=== PATIENT | male | born 1945 | race African-American/Black ===

== ENCOUNTER → 2022-10-11 14:23 | Outpatient (BNVA) | payer MEDICARE, OTHER, SELFPAY | PROVIDERS: PCP Internal Medicine; Visit Provider Internal Medicine | DX: E66.01 Morbid (severe) obesity due to excess calories (principal); Z68.42 Body mass index [BMI] 45.0-49.9, adult; G47.33 Obstructive sleep apnea (adult) (pediatric); R06.09 Other forms of dyspnea; J98.4 Other disorders of lung; Z99.89 Dependence on other enabling machines and devices | CPT/HCPCS: 99202 ==

== ENCOUNTER 2022-12-18 13:59 | Outpatient (AMB) | payer MEDICARE, OTHER, SELFPAY ==
--- NOTE | 2022-12-18 14:03 | A.OFFVIS_ITS ---
Intake Vital Signs 12/18/22 14:04 Height 5 ft 11 in Weight 328 lb 7.82 oz BMI 45.8 BP 132/76 Blood Pressure Location Rt brachial Position Sitting Pulse 86 Pulse Source Pulse Oximeter Pulse Oximetry (%) 92 Oxygen Delivery Method Room Air Intake Visit Reasons: Same day PFT Intake Note: Pt reports shortness of breath on exertion that has continuously gotten worse. Technical Specialist Required: No Allergies No Known Allergies Allergy (Verified 12/18/22 15:04) Medication List - Last Reconciled 12/18/22 by Tam Grewal MD albuterol sulfate 90 mcg/actuation 2 puffs inhalation Q4-6H PRN allopurinol 300 mg PO DAILY atorvastatin 40 mg PO BEDTIME buspirone 20 mg PO TID PRN cholecalciferol (vitamin D3) 50 mcg PO DAILY dicyclomine 20 mg PO BID escitalopram oxalate 10 mg PO DAILY finasteride 5 mg PO DAILY hydrocortisone valerate 0.2% 1 appl topical BID PRN metoprolol tartrate 12.5 mg PO BID tamsulosin 0.4 mg PO DAILY torsemide 20 mg PO DAILY trazodone 100 mg PO BEDTIME PRN warfarin 3 mg PO DAILY warfarin 5 mg PO DAILY Do you need a note to return to daycare/school/sports/work: No HPI Same day PFT HPI Details This 76 years old gentleman who is morbidly obese, has obstructive sleep apnea using CPAP at night regularly, Has past history of CABG. Is here for follow-up for shortness of breath on minimal exertion, Does not have any distinct wheezing, also does not. Have cough or expectoration He just gets short of breath when he walks even 1 block, and when he walks he walks slow. He has been doing deep breathing exercises. He is not able to lose any weight because he is not able to do much exercise. [facility] Medical History (Updated 12/18/22 @ 16:40 by Tam Grewal MD) Dyspnea on minimal exertion Exercise hypoxemia Morbid obesity ZAIN on CPAP Restrictive lung disease secondary to obesity Social History Patient Tobacco Use Status: Former Tobacco user Review of Systems Const All systems reviewed & are unremarkable except as noted in HPI and below Eyes Reports no additional complaints ENT Reports no additional complaints Card Denies chest pain, Denies irregular heart rhythm and Reports leg edema Resp Reports as per HPI GI Reports GI cramping (OFF AND ON) Reports nocturia Musc Reports back pain Skin/Breast Reports dry skin (OF THE LEGS) Neuro Reports no additional complaints Psych Reports no additional complaints Endo Reports no additional complaints Physical Exam Vital Signs: Last Vital Signs Pulse 86 12/18/22 14:04 BP 132/76 12/18/22 14:04 Pulse Ox 92 12/18/22 14:04 Oxygen Delivery Method Room Air 12/18/22 14:04 BMI result Body Mass Index 45.8 Const General: comfortable, no acute distress, alert and awake Orientation/consciousness: patient oriented x3 HEENT Head: Yes normal to inspection General nose exam: No nasal polyps present and No nasal discharge present Face and sinus: Yes sinuses nontender Mouth: oropharynx abnormals (NARROW AND CROWDED, MALLAMPATI SCALE 4) Throat: Yes posterior oropharynx normal Eyes General: appearance normal, both eyes and all related structures Neck Neck: Yes normal visual inspection, Yes no lymphadenopathy, Yes trachea midline, Yes no JVD and Yes other (NECK CIRCUMFERENCE 19 IN) Thyroid: Thyroid normal Chest Chest palpation & inspection: abnormal inspection of the chest (MIDLINE SCAR FROM PREVIOUS CABG SURGERY), normal palpation of entire chest wall and no tenderness Resp Other: PERCUSSION NOTE IS RESONANT. BREATH SOUNDS ARE DIMINISHED OVER BOTH BASILAR AREAS. NO WHEEZES RHONCHI OR CREPITATIONS ARE HEARD. Cardio Palpation: normal PMI Rate: regular rate Rhythm: regular rhythm Heart sounds: no gallops and no murmurs GI Palpation (GI): Soft to palpation, nontender, No hepatosplenomegaly present, no masses and Other GI palpation findings present (ABDOMEN IS OBESE AND PROTUBERANT) Auscultation: normal bowel sounds Back/Spine/Pelvis Thoracic/Lumbar Spine: thoracic and lumbar spine normal to inspection, thoraco- lumbar ROM limited and thoracic spinal tenderness Skin General skin exam: no rashes or lesions noted and dry skin (CHRONIC SCALING AND DRY SKIN OF LEGS) Neuro General: patient oriented x3 and no focal motor deficits Cranial nerves: Yes CN's II-XII intact bilaterally Extrem General: Yes normal to inspection, Yes no clubbing, cyanosis or edema, Yes no calf tenderness and Yes venous stasis dermatitis (MILD) Psych Appearance: grossly normal and well kempt Speech and movement: Normal speech and movement present Office Procedures 6 Minute Walk Time:: 15:55 SPO2 % at rest: 95 Pulse at rest: 76 SPO2 % during excercise: 87 Pulse during excercise: 100 SPO2 % after excercise: 93 Pulse after excercise: 85 Distance in yards walked: 75 Renetta Score: 9 Performance Observations:: Patient walked unassisted for 75 yards on level ground. Maintained O2 saturation of 90%with pulse rate of 100. During the last 10 yards patient was SOB with O2 saturation down to 87%. Supplemental O2 was applied at 1liter via nasal cannula with return to 93% after about 1 minute. Patient reports he tires easily and gets SOB with walking any distance. [address]6580 - 6 Minute Walk Results Reviewed Results Reviewed: PULMONARY FUNCTION TEST, DONE TODAY SHOWS THAT HE DOES NOT HAVE ANY SIGNIFICANT OBSTRUCTIVE DISORDER. HE DOES HAVE MILD RESTRICTIVE PATTERN WITH TOTAL LUNG CAPACITY 79%. FVC 71% AND FEV1 70% MVV IS 49%. NO RESPONSE TO BDs . ALSO DIFFUSION CAPACITY IS 56% DL/VA =77 % Assessment & Plan Assessment & Plan (1) Restrictive lung disease secondary to obesity: Comment: HE DOES HAVE BUT ONLY MILD RESTRICTIVE PATTERN. THIS IS SECONDARY TO HIS GROSS OBESITY. ADVISED TO LOSE WEIGHT ADVISED TO CONTINUE DOING DEEP BREATHING EXERCISES 3 TO 4 TIMES A DAY. Code(s): J98.4 - Other disorders of lung; E66.9 - Obesity, unspecified (2) Dyspnea on minimal exertion: Comment: DYSPNEA ON MINIMAL EXERTION SEEMS TO BE DUE TO MULTIPLE FACTORS INCLUDING, GROSS OBESITY, MILD RESTRICTIVE PATTERN. AND MOST IMPORTANTLY EXERTIONAL HYPOXEMIA. HE IS BEING STARTED ON O2 WITH PORTABLE UNIT, AND ADVISED TO USE 2 L/MINUTE ANY TIME HE WALKS AROUND OR DOES ANY PHYSICAL EXERTION. Code(s): R06.09 - Other forms of dyspnea (3) ZAIN on CPAP: Comment: HE IS IN KNOWN CASE OF OBSTRUCTIVE SLEEP APNEA SINCE ABOUT 10 YEARS AGO, USES CPAP VERY REGULARLY EVERY NIGHT. HE SHOULD HAVE OVERNIGHT OXIMETRY RECORDING WITH USE OF CPAP, TO DETERMINE IF HE SHOULD USE OXYGEN ALONG WITH CPAP AT NIGHT . HE IS BEING FOLLOWED UP AT [facility]. Code(s): G47.33 - Obstructive sleep apnea (adult) (pediatric); Z99.89 - Dependence on other enabling machines and devices (4) Morbid obesity: Comment: THIS GENTLEMAN HAS RATHER GROSS OBESITY, WEIGHT HAS GRADUALLY INCREASED BECAUSE OF LACK OF PHYSICAL EXERCISE AND ACTIVITY. I DISCUSSED WITH HIM IN GREAT DETAIL ABOUT THE HEALTH RISKS ASSOCIATED WITH MORBID OBESITY, AND NEED TO LOSE WEIGHT. HE IS NOT GOING TO BE ABLE TO PARTICIPATE IN ANY WEIGHT MANAGEMENT PROGRAM. I INSTRUCTED HIM ABOUT CUTTING DOWN THE PORTIONS OF HIS FOOD, AND TRY TO WALK MUCH HE CAN. Code(s): E66.01 - Morbid (severe) obesity due to excess calories (5) Exercise hypoxemia: Comment: We did a 6 minutes walk test and his O2 sat does drop down to 87 after walking 4 minutes, He was started on a O2 1 L/minute which maintained his O2 sat around 93-94%. * I EXPLAINED TO THE PATIENT THAT HE NEEDS PORTABLE OXYGEN WHENEVER HE HAS TO WALK. HE IS LITTLE BIT RELUCTANT TO GO ON OXYGEN BUT AFTER FULL EXPLANATION HE UNDERSTANDS AND IS AGREEABLE. Code(s): R09.02 - Hypoxemia Plan: IN ADDITION TO ABOVE FINDINGS, I A.M. CONCERNED ABOUT HIS DYSPNEA ON EXERTION, ALSO EXERTIONAL HYPOXEMIA,, AND A LOW DLCO. THIS IS A POSSIBILITY INTERSTITIAL LUNG DISEASE, AND ALSO POSSIBILITY OF PULMONARY HYPERTENSION NEEDS TO BE RULED OUT. I PLAN TO GET A HIGH RESOLUTION CT SCAN OF THE CHEST, AND ALSO AN ECHOCARDIOGRAM. Orders: Orders AMB 6 minute walk Today E66.9 - Obesity, unspecified, J98.4 - Other disorders of lung, R06.09 - Other forms of dyspnea, R09.02 - Hypoxemia Coding Level of Care Code Est Pt Level 4 (05007) Diagnoses Restrictive lung disease secondary to obesity J98.4; E66.9 Dyspnea on minimal exertion R06.09 ZAIN on CPAP G47.33; Z99.89 Morbid obesity E66.01 Exercise hypoxemia R09.02 CPT Codes Coding ([id number])
[2022-12-18 14:04] VITALS: BP 132/76; PULSE 86; O2SAT 92; BMI 45.8
[2022-12-18 16:23] VITALS: PULSE 76; O2SAT 95
== END 2022-12-18 15:13 | disposition home or self-care (01) ==
PROVIDERS: PCP Internal Medicine; Visit Provider Internal Medicine
DX: J98.4 Other disorders of lung (principal); G47.33 Obstructive sleep apnea (adult) (pediatric); Z99.89 Dependence on other enabling machines and devices
CPT/HCPCS: 94060; 94618; 94727; 94729; 99214

== ENCOUNTER 2022-12-18 14:51 | Outpatient (REF) | payer MEDICARE, OTHER, SELFPAY ==
--- NOTE | 2022-12-18 15:41 | PFT_ITS ---
Forced vital capacity is 71%, FEV1 70%, FEV1/FVC ratio is 73. FEF 25/75 62% and MVV is 49%. Post bronchodilator therapy, there is a slight improvement in FVC, but no other change, rather the numbers are somewhat decreased. It should be noted that the patient's effort was somewhat poor and irregular. Total lung capacity 79%. Residual volume 98%. Diffusion capacity 56% and DL/VA is 77%, this indicates that volume corrected diffusion capacity is only slightly decreased. CONCLUSION: There is mild restrictive pulmonary disorder. Possible mild obstructive disorder. Decreased diffusion capacity is indicative of possible interstitial lung disease. Clinical correlation is recommended. Tam Grewal MD MSB/MODL / [id number]
== END 2022-12-18 14:52 | disposition home or self-care (01) ==
LOC: HO.RESP 14:51
PROVIDERS: Visit Provider Internal Medicine
DX: R06.09 Other forms of dyspnea (principal); G47.33 Obstructive sleep apnea (adult) (pediatric); J98.4 Other disorders of lung; Z99.89 Dependence on other enabling machines and devices; E66.01 Morbid (severe) obesity due to excess calories
CPT/HCPCS: 94010; 94618; 94727; 94729; 99212

== ENCOUNTER 2023-01-10 12:58 | Outpatient (REF) | payer MEDICARE, OTHER, SELFPAY ==
--- NOTE | ~2023-01-10 | CT_ITS ---
EXAMINATION: High-resolution chest CT without contrast CLINICAL INFORMATION: Hypoxemia COMPARISON: None. TECHNIQUE: Axial images through the chest without IV contrast. Sagittal and coronal reconstructions on the technologist workstation were performed. This CT examination was performed using dose optimization techniques as appropriate, variously including the following: *Automated exposure control *Adjustment of mA and/or kV according to patient size (this includes techniques or standardized protocols for targeted exams where dose is matched to indication/reason for exam; i.e. extremities or head) *Use of iterative reconstruction technique DLP 4 5 3 mg/cm. FINDINGS: 4 mm right upper lobe nodule axial image 46 series 4. 3 mm peripheral or subpleural right upper lobe nodule adjacent to the mediastinum axial image 82 series 4. 3 mm central right upper lobe nodule axial image 87 series 4. 2 mm peripheral or subpleural right upper lobe nodule adjacent to the mediastinum axial image 9 5 series 4. 3 mm peripheral or subpleural right upper lobe nodule adjacent to the minor fissure axial image 100 series 4. 5 mm peripheral or subpleural right lower lobe nodule adjacent to the diaphragmatic pleural surface axial image 158 series 4. The latter nodule stable from January [address] scan. No evidence of emphysema interstitial lung disease or bronchiectasis. No endobronchial or endotracheal lesion. Small mediastinal and probable bilateral hilar lymph nodes. No enlarged lymph nodes. Normal heart size. Aortic valve replacement and post-CABG changes. No pericardial effusion. Tortuous but normal caliber thoracic aorta. No chest wall mass or enlarged axillary lymph nodes. No pleural effusion. Images through the upper abdomen demonstrate small calcifications in the pancreas. There are bilateral renal cysts. No imaging follow-up recommended. Partial visualization of the foreign body in the IVC probably representing an IVC filter. Review of bone windows demonstrates degenerative changes of the spine. Median sternotomy wires. CT/CT chest wo con - High Res IMPRESSION: Small pulmonary nodules, largest measuring 5 mm in the right lower lobe. According to the UPDATED 2017 Fleischner Society recommendations, the advised follow-up imaging for solid nodules < 6 mm is: LOW RISK PATIENT: No routine follow-up. HIGH RISK PATIENT: Optional CT at 12 months.
== END 2023-01-10 12:59 | disposition home or self-care (01) ==
LOC: HO.CT 12:58
PROVIDERS: Visit Provider Internal Medicine
DX: J98.4 Other disorders of lung (principal); R06.09 Other forms of dyspnea; R09.02 Hypoxemia
CPT/HCPCS: 71250

== ENCOUNTER → 2023-02-06 14:04 | Outpatient (REF) | payer MEDICARE, OTHER, SELFPAY ==
--- NOTE | 2023-02-06 14:07 | CA_ITS ---
Transthoracic Echocardiogram Patient (Last, First, Middle): Aung Andrew, Gender: Male Date of : 1945 Age: 77 Procedure Date: 02/06/2023 Procedure Type: Transthoracic Echocardiogram Location: OP Height: 180.34 cm Weight: 149.69 kg BSA: 2.61 m2 Heart Rate: 93 bpm BP: 150 / 85 mmHg Herbarium Curator: HALIMA Referring MD: Tam Grewal MD Symptoms: R09.02 - Hypoxemia Study Quality: Adequate/Contrast ECG Rhythm: Sinus Conclusions: - The left ventricular systolic function is normal. The calculated ejection fraction is 57% by biplane method. - There is mild to moderate aortic valve stenosis. - There is moderate to severe mitral valve stenosis. - There is mild dilatation of the ascending aorta measuring 4.30 cm. Findings Procedure Information Contrast agent, definity, is being given per protocol without apparent complications. Left Ventricle Normal left ventricular cavity size. There is moderately increased left ventricular wall thickness. The left ventricular systolic function is normal. The calculated ejection fraction is 57% by biplane method. There is no evidence of regional wall motion abnormalities. Evidence suggests grade I (mild) diastolic dysfunction. Right Ventricle Mildly increased right ventricular cavity size. There is normal right ventricular systolic function. Atria Both atria are normal in size. Aortic Valve There is moderate calcification of the aortic valve. There is mild to moderate aortic valve stenosis. There is no aortic valve regurgitation. Mitral Valve There is severe mitral annular calcification. There is no mitral valve regurgitation. There is moderate to severe mitral valve stenosis. Pulmonic Valve The pulmonic valve is likely normal. Tricuspid Valve There is trace tricuspid valve regurgitation. There is no evidence of pulmonary hypertension. Great Vessels There is mild dilatation of the ascending aorta measuring 4.30 cm. Venous The inferior vena cava is normal in size and collapses greater than 50% with inspiration. Pericardium/Pleural There is no evidence of pericardial effusion. Prior Study Comparison No prior study available for comparison. Measurements 2D Linear Measurements IVSd: 1.50 0.6-0.9/0.6-1.0 cm LVIDd: 4.40 3.9-5.3/4.2-5.9 cm LVIDd Index: 1.69 2.4-3.2/2.2-3.1 cm/m2 LVIDs: 2.30 2.0-3.6 cm LVPWd: 1.40 0.7-1.1 cm LA Diam: 5.20 2.7-3.8/3.0-4.0 cm LAIDs Index: 1.99 1.5-2.3 cm/m2 LV Mass: 315.99 67-162/88-224 g LV Mass Index: 121.07 43-95/49-115 g/m2 LVOT Diam: 1.90 3.0+(-)1.3 cm 2D Systolic Function EF 4C: 57.40 >55% EF 2C: 57.60 >55% EF BiP: 57.40 >55% Mitral Valve MV VTI: 0.44 MV Pk Norm: 2.16 MV Mn Norm: 1.47 MV Pk Grad: 19.00 MV Mn Grad: 10.00 MV Pk E: 1.32 MV PK A: 1.83 MV Decel Time: 347.00 E/A: 0.70 E'Lateral: 8.92 E'Medial: 6.74 E/E' Med: 19.60 E/E' Lat: 14.80 PHT: 102.00 MVA PHT: 2.16 MVA Continuity: 1.37 Decel Bath: 3.82 Aortic Valve AoV Pk Norm: 2.46 AoV Mn Norm: 1.75 AoV VTI: 0.42 AoV Pk Grad: 24.00 Aov Mn Grad: 14.00 SANDY Cont.VTI: 1.43 LVOT LVOT Pk Norm: 1.12 LVOT Mn Norm: 0.70 LVOT VTI: 0.21 LVOT Pk Grad: 5.00 LVOT Mn Grad: 2.00 LVOT Diam: 1.90 LVOT Area: 2.84 Diastolic Function MV Pk E: 1.32 MV Pk A: 1.83 E/A: 0.70 E'Medial: 6.74 E/E' Med: 19.60 E' Laterial: 8.92 E/E' Lat: 14.80 Right Ventricle TAPSE (mm): 12.40 TVS' Norm: 13.80 Tricuspid Valve RA Press: 3.00 Great Vessels Aorta Sinus of Valsalva: 3.70 2.0-3.5 cm Ao Asc: 4.30 2.1-3.4 cm Pulmonary Valve PV Pk Norm: 1.41 Peak PV Grad: 8.00 Updated in Other Vendor System with Status of Final Jack Tomas MD electronically signed on 02/07/2023 12:23:18 PM with status of Final
== END ==
LOC: HO.CARD 14:04
PROVIDERS: Visit Provider Internal Medicine
DX: R09.02 Hypoxemia (principal); R06.09 Other forms of dyspnea; G47.33 Obstructive sleep apnea (adult) (pediatric)
CPT/HCPCS: 93306; Q9957

== ENCOUNTER → 2023-02-06 14:07 | Outpatient (BNV) | payer MEDICARE, OTHER, SELFPAY | PROVIDERS: Visit Provider Internal Medicine | DX: I35.0 Nonrheumatic aortic (valve) stenosis (principal); I34.2 Nonrheumatic mitral (valve) stenosis | CPT/HCPCS: 93306 ==

== ENCOUNTER 2023-02-12 13:52 | Outpatient (AMB) | payer MEDICARE, OTHER, SELFPAY ==
[2023-02-12 13:56] VITALS: BP 120/64; PULSE 92; O2SAT 92; BMI 47.8
--- NOTE | 2023-02-12 13:56 | A.OFFVIS_ITS ---
Intake Vital Signs 02/12/23 13:56 Height 5 ft 11 in Weight 343 lb BMI 47.8 BP 120/64 Blood Pressure Location Lt brachial Position Sitting Pulse 92 Pulse Source Pulse Oximeter Pulse Oximetry (%) 92 Oxygen Delivery Method Room Air Intake Visit Reasons: COPD Intake Note: pt is here for follow up and poc eval. He states he feels okay today. The usual issues. Ancillary Services Manager Therapy Required: No Allergies No Known Allergies Allergy (Verified 02/12/23 14:27) Medication List - Last Reconciled 02/12/23 by Tam Grewal MD albuterol sulfate 90 mcg/actuation 2 puffs inhalation Q4-6H PRN allopurinol 300 mg PO DAILY atorvastatin 40 mg PO BEDTIME buspirone 20 mg PO TID PRN cholecalciferol (vitamin D3) 50 mcg PO DAILY dicyclomine 20 mg PO BID escitalopram oxalate 10 mg PO DAILY finasteride 5 mg PO DAILY hydrocortisone valerate 0.2% 1 appl topical BID PRN metoprolol tartrate 12.5 mg PO BID tamsulosin 0.4 mg PO DAILY torsemide 20 mg PO DAILY trazodone 100 mg PO BEDTIME PRN warfarin 3 mg PO DAILY warfarin 5 mg PO DAILY Do you need a note to return to daycare/school/sports/work: No HPI COPD HPI Details This 76 years old gentleman who is morbidly obese, has obstructive sleep apnea using CPAP at night regularly, Has past history of CABG. Is here for follow-up for shortness of breath on minimal exertion, since his last visit he has been provided portable oxygen as well as stationary concentrator at home. He has been using portable cylinders when he goes outdoors, but complains of being heavy . And would like to be evaluated for a lightweight portable unit/ POC . Does not have any distinct wheezing, also does not. Have cough or expectoration He just gets short of breath when he walks even 1 block, and when he walks he walks slow. He gives history of pulmonary fibrosis in his family members, so I had ordered a high-resolution CT scan of the chest. There was no interstitial lung disease noted but some tiny pulmonary nodules, the largest being 5 mm , were noted. Patient quit smoking about 30 years ago so he is basically a low risk individual. He is not able to lose any weight because he is not able to do much exercises , but does do deep breathing exercises. [facility] Medical History Exercise hypoxemia Restrictive lung disease secondary to obesity Dyspnea on minimal exertion ZAIN on CPAP Morbid obesity Social History Patient Tobacco Use Status: Former Tobacco user Review of Systems Const All systems reviewed & are unremarkable except as noted in HPI and below Eyes Reports no additional complaints ENT Reports no additional complaints Card Denies chest pain, Denies irregular heart rhythm and Reports leg edema Resp Reports as per HPI GI Reports GI cramping (OFF AND ON) Reports nocturia Musc Reports back pain Skin/Breast Reports dry skin (OF THE LEGS) Neuro Reports no additional complaints Psych Reports no additional complaints Endo Reports no additional complaints Physical Exam Vital Signs: Last Vital Signs Pulse 92 02/12/23 13:56 BP 120/64 02/12/23 13:56 Pulse Ox 92 02/12/23 13:56 Oxygen Delivery Method Room Air 02/12/23 13:56 BMI result Body Mass Index 47.8 Const General: comfortable, no acute distress, alert and awake Orientation/consciousness: patient oriented x3 HEENT Head: Yes normal to inspection General nose exam: No nasal polyps present and No nasal discharge present Face and sinus: Yes sinuses nontender Mouth: oropharynx abnormals (NARROW AND CROWDED, MALLAMPATI SCALE 4) Throat: Yes posterior oropharynx normal Eyes General: appearance normal, both eyes and all related structures Neck Neck: Yes normal visual inspection, Yes no lymphadenopathy, Yes trachea midline, Yes no JVD and Yes other (NECK CIRCUMFERENCE 19 IN) Thyroid: Thyroid normal Chest Chest palpation & inspection: abnormal inspection of the chest (MIDLINE SCAR FROM PREVIOUS CABG SURGERY), normal palpation of entire chest wall and no tenderness Resp Other: PERCUSSION NOTE IS RESONANT. BREATH SOUNDS ARE DIMINISHED OVER BOTH BASILAR AREAS. NO WHEEZES RHONCHI OR CREPITATIONS ARE HEARD. Cardio Palpation: normal PMI Rate: regular rate Rhythm: regular rhythm Heart sounds: no gallops and no murmurs GI Palpation (GI): Soft to palpation, nontender, No hepatosplenomegaly present, no masses and Other GI palpation findings present (ABDOMEN IS OBESE AND PROTUBERANT) Auscultation: normal bowel sounds Back/Spine/Pelvis Thoracic/Lumbar Spine: thoracic and lumbar spine normal to inspection, thoraco- lumbar ROM limited and thoracic spinal tenderness Skin General skin exam: no rashes or lesions noted and dry skin (CHRONIC SCALING AND DRY SKIN OF LEGS) Neuro General: patient oriented x3 and no focal motor deficits Cranial nerves: Yes CN's II-XII intact bilaterally Extrem General: Yes normal to inspection, Yes no clubbing, cyanosis or edema, Yes no calf tenderness and Yes venous stasis dermatitis (MILD) Psych Appearance: grossly normal and well kempt Speech and movement: Normal speech and movement present Office Procedures 6 Minute Walk Time:: 14:15 SPO2 % at rest: 93 Pulse at rest: 76 SPO2 % during excercise: 87 Pulse during excercise: 102 SPO2 % after excercise: 94 Pulse after excercise: 96 Distance in yards walked: 150 Renetta Score: 5 Performance Observations:: Aung walked on level ground without assistance, he walked for 3 minutes before his SPO2 decreased to 87% on room air. O2 started at setting 2 pulsed O2 then increased to setting 3, his SPO2 recovered to 94%. He maintained his SPO2 90-94% on setting 3 pulsed O2. 31951 - 6 Minute Walk Results Reviewed Results Reviewed: CT, SCAN OF THE CHEST NO EVIDENCE OF PULMONARY. FIBROSIS OR INTERSTITIAL LUNG DISEASE MULTIPLE TINY PULMONARY NODULES THE LARGEST BEING 5 MM, THE PATIENT IS A LOW RISK PATIENT. 6 MINUTES WALK TEST TO QUALIFY FOR OXYGEN CONSERVING UNIT. Assessment & Plan Assessment & Plan (1) Morbid obesity: Comment: THIS GENTLEMAN HAS RATHER GROSS OBESITY, WEIGHT HAS GRADUALLY INCREASED BECAUSE OF LACK OF PHYSICAL EXERCISE AND ACTIVITY. HE HAS ACTUALLY PUT ON MORE WEIGHT SINCE HIS LAST VISIT. I DISCUSSED WITH HIM IN GREAT DETAIL ABOUT THE HEALTH RISKS ASSOCIATED WITH MORBID OBESITY, AND NEED TO LOSE WEIGHT. HE IS NOT GOING TO BE ABLE TO PARTICIPATE IN ANY WEIGHT MANAGEMENT PROGRAM. I INSTRUCTED HIM ABOUT CUTTING DOWN THE PORTIONS OF HIS FOOD, AND TRY TO WALK MUCH HE CAN. Code(s): E66.01 - Morbid (severe) obesity due to excess calories (2) ZAIN on CPAP: Comment: HE IS IN KNOWN CASE OF OBSTRUCTIVE SLEEP APNEA SINCE ABOUT 10 YEARS AGO, USES CPAP VERY REGULARLY EVERY NIGHT. HE SHOULD HAVE OVERNIGHT OXIMETRY RECORDING WITH USE OF CPAP, TO DETERMINE IF HE SHOULD USE OXYGEN ALONG WITH CPAP AT NIGHT . HE IS BEING FOLLOWED UP AT [facility] FOR ZAIN MANAGEMENT . Code(s): G47.33 - Obstructive sleep apnea (adult) (pediatric); Z99.89 - Dependence on other enabling machines and devices (3) Dyspnea on minimal exertion: Comment: DYSPNEA ON MINIMAL EXERTION SEEMS TO BE DUE TO MULTIPLE FACTORS INCLUDING, GROSS OBESITY, MILD RESTRICTIVE PATTERN. AND MOST IMPORTANTLY EXERTIONAL HYPOXEMIA. HE IS BEING STARTED ON O2 WITH PORTABLE UNIT, AND ADVISED TO USE 2 L/MINUTE ANY TIME HE WALKS AROUND OR DOES ANY PHYSICAL EXERTION. HE HAD 6 MINUTES WALK ON THE PULSE OXYGEN MODE. NEEDED O2 3 L/MINUTE, TO KEEP O2 SAT ABOVE 90%. I WILL SEND ORDER TO HIS DME SUPPLIER FOR A POC UNIT. Code(s): R06.09 - Other forms of dyspnea (4) Restrictive lung disease secondary to obesity: Comment: HE DOES HAVE BUT ONLY MILD RESTRICTIVE PATTERN. THIS IS SECONDARY TO HIS GROSS OBESITY. ADVISED TO LOSE WEIGHT ADVISED TO CONTINUE DOING DEEP BREATHING EXERCISES 3 TO 4 TIMES A DAY. Code(s): J98.4 - Other disorders of lung; E66.9 - Obesity, unspecified (5) Exercise hypoxemia: Comment: We did a 6 minutes walk test and his O2 sat does drop down to 87 after walking 4 minutes, He was started on a O2 1 L/minute which maintained his O2 sat around 93-94%. * I EXPLAINED TO THE PATIENT THAT HE NEEDS PORTABLE OXYGEN WHENEVER HE HAS TO WALK. HE PASSED THE TEST FOR POC. NEEDS O2 3 L/MINUTE WITH THE OXYGEN CONSERVING MODE. Code(s): R09.02 - Hypoxemia Orders: Orders AMB 6 minute walk Today R09.02 - Hypoxemia Coding Level of Care Code Est Pt Level 3 (97733) Diagnoses Morbid obesity E66.01 ZAIN on CPAP G47.33; Z99.89 Dyspnea on minimal exertion R06.09 Restrictive lung disease secondary to obesity J98.4; E66.9 Exercise hypoxemia R09.02 CPT Codes Coding ([id number])
[2023-02-12 14:56] VITALS: PULSE 76; O2SAT 93
--- NOTE | 2023-02-12 15:15 | MHC.OFFVIS ---
Intake Vital Signs 02/12/23 13:56 Height 5 ft 11 in Weight 343 lb BMI 47.8 BP 120/64 Blood Pressure Location Lt brachial Position Sitting Pulse 92 Pulse Source Pulse Oximeter Pulse Oximetry (%) 92 Oxygen Delivery Method Room Air Intake Visit Reasons: COPD Allergies No Known Allergies Allergy (Verified 02/12/23 14:27) Medication List - Last Reconciled 02/12/23 by Tam Grewal MD albuterol sulfate 90 mcg/actuation 2 puffs inhalation Q4-6H PRN allopurinol 300 mg PO DAILY atorvastatin 40 mg PO BEDTIME buspirone 20 mg PO TID PRN cholecalciferol (vitamin D3) 50 mcg PO DAILY dicyclomine 20 mg PO BID escitalopram oxalate 10 mg PO DAILY finasteride 5 mg PO DAILY hydrocortisone valerate 0.2% 1 appl topical BID PRN metoprolol tartrate 12.5 mg PO BID tamsulosin 0.4 mg PO DAILY torsemide 20 mg PO DAILY trazodone 100 mg PO BEDTIME PRN warfarin 3 mg PO DAILY warfarin 5 mg PO DAILY PFS Medical History Exercise hypoxemia Restrictive lung disease secondary to obesity Dyspnea on minimal exertion ZAIN on CPAP Morbid obesity Social History Patient Tobacco Use Status: Former Tobacco user Physical Exam Vital Signs: Last Vital Signs Pulse 92 02/12/23 13:56 BP 120/64 02/12/23 13:56 Pulse Ox 92 02/12/23 13:56 Oxygen Delivery Method Room Air 02/12/23 13:56 BMI result Body Mass Index 47.8 Office Procedures 6 Minute Walk Time:: 14:15 SPO2 % at rest: 93 Pulse at rest: 76 SPO2 % during excercise: 87 Pulse during excercise: 102 SPO2 % after excercise: 94 Pulse after excercise: 96 Distance in yards walked: 150 Renetta Score: 5 Performance Observations:: Aung walked on level ground without assistance, he walked for 3 minutes before his SPO2 decreased to 87% on room air. O2 started at setting 2 pulsed O2 then increased to setting 3, his SPO2 recovered to 94%. He maintained his SPO2 90-94% on setting 3 pulsed O2. [address]93 - 6 Minute Walk Assessment & Plan Assessment & Plan (1) Morbid obesity: Comment: THIS GENTLEMAN HAS RATHER GROSS OBESITY, WEIGHT HAS GRADUALLY INCREASED BECAUSE OF LACK OF PHYSICAL EXERCISE AND ACTIVITY. HE HAS ACTUALLY PUT ON MORE WEIGHT SINCE HIS LAST VISIT. I DISCUSSED WITH HIM IN GREAT DETAIL ABOUT THE HEALTH RISKS ASSOCIATED WITH MORBID OBESITY, AND NEED TO LOSE WEIGHT. HE IS NOT GOING TO BE ABLE TO PARTICIPATE IN ANY WEIGHT MANAGEMENT PROGRAM. I INSTRUCTED HIM ABOUT CUTTING DOWN THE PORTIONS OF HIS FOOD, AND TRY TO WALK MUCH HE CAN. Code(s): E66.01 - Morbid (severe) obesity due to excess calories (2) ZAIN on CPAP: Comment: HE IS IN KNOWN CASE OF OBSTRUCTIVE SLEEP APNEA SINCE ABOUT 10 YEARS AGO, USES CPAP VERY REGULARLY EVERY NIGHT. HE SHOULD HAVE OVERNIGHT OXIMETRY RECORDING WITH USE OF CPAP, TO DETERMINE IF HE SHOULD USE OXYGEN ALONG WITH CPAP AT NIGHT . HE IS BEING FOLLOWED UP AT [facility] FOR ZAIN MANAGEMENT . Code(s): G47.33 - Obstructive sleep apnea (adult) (pediatric); Z99.89 - Dependence on other enabling machines and devices (3) Dyspnea on minimal exertion: Comment: DYSPNEA ON MINIMAL EXERTION SEEMS TO BE DUE TO MULTIPLE FACTORS INCLUDING, GROSS OBESITY, MILD RESTRICTIVE PATTERN. AND MOST IMPORTANTLY EXERTIONAL HYPOXEMIA. HE IS BEING STARTED ON O2 WITH PORTABLE UNIT, AND ADVISED TO USE 2 L/MINUTE ANY TIME HE WALKS AROUND OR DOES ANY PHYSICAL EXERTION. HE HAD 6 MINUTES WALK ON THE PULSE OXYGEN MODE. NEEDED O2 3 L/MINUTE, TO KEEP O2 SAT ABOVE 90%. I WILL SEND ORDER TO HIS DME SUPPLIER FOR A POC UNIT. Code(s): R06.09 - Other forms of dyspnea (4) Restrictive lung disease secondary to obesity: Comment: HE DOES HAVE BUT ONLY MILD RESTRICTIVE PATTERN. THIS IS SECONDARY TO HIS GROSS OBESITY. ADVISED TO LOSE WEIGHT ADVISED TO CONTINUE DOING DEEP BREATHING EXERCISES 3 TO 4 TIMES A DAY. Code(s): J98.4 - Other disorders of lung; E66.9 - Obesity, unspecified (5) Exercise hypoxemia: Comment: We did a 6 minutes walk test and his O2 sat does drop down to 87 after walking 4 minutes, He was started on a O2 1 L/minute which maintained his O2 sat around 93-94%. * I EXPLAINED TO THE PATIENT THAT HE NEEDS PORTABLE OXYGEN WHENEVER HE HAS TO WALK. HE PASSED THE TEST FOR POC. NEEDS O2 3 L/MINUTE WITH THE OXYGEN CONSERVING MODE. Code(s): R09.02 - Hypoxemia Orders: Orders AMB 6 minute walk Today R09.02 - Hypoxemia Coding Level of Care Code Est Pt Level 4 (43979) Diagnoses Morbid obesity E66.01 ZAIN on CPAP G47.33; Z99.89 Dyspnea on minimal exertion R06.09 Restrictive lung disease secondary to obesity J98.4; E66.9 Exercise hypoxemia R09.02 CPT Codes Coding ([id number])
== END 2023-02-12 14:45 | disposition home or self-care (01) ==
PROVIDERS: Visit Provider Internal Medicine
DX: R06.09 Other forms of dyspnea (principal); J98.4 Other disorders of lung; E66.9 Obesity, unspecified; R09.02 Hypoxemia; Z99.89 Dependence on other enabling machines and devices
CPT/HCPCS: 94618; 99213; 99214

== ENCOUNTER → 2023-02-12 13:52 | Outpatient (BNVA) | payer MEDICARE, OTHER, SELFPAY | PROVIDERS: Visit Provider Internal Medicine | DX: R06.09 Other forms of dyspnea (principal); R09.02 Hypoxemia; J98.4 Other disorders of lung; G47.33 Obstructive sleep apnea (adult) (pediatric); E66.01 Morbid (severe) obesity due to excess calories; Z99.89 Dependence on other enabling machines and devices; Z68.42 Body mass index [BMI] 45.0-49.9, adult | CPT/HCPCS: 94618; 99212 ==

== ENCOUNTER 2023-04-25 14:44 | Outpatient (AMB) | payer MEDICARE, OTHER, SELFPAY ==
[2023-04-25 14:52] VITALS: BP 112/70; PULSE 91; O2SAT 97; BMI 47.3
--- NOTE | 2023-04-25 14:52 | MHC.OFFVIS ---
Intake Vital Signs 04/25/23 14:52 Height 5 ft 11 in Weight 339 lb BMI 47.3 BP 112/70 Blood Pressure Location Lt brachial Position Sitting Pulse 91 Pulse Source Pulse Oximeter Pulse Oximetry (%) 97 Oxygen Delivery Method Room Air Intake Visit Reasons: COPD Intake Note: pt is here for follow up and states he is having some shortness of breath with anything, talking, walking. Time Lock Expert Required: No Allergies No Known Allergies Allergy (Verified 04/25/23 15:03) Medication List - Last Reconciled 04/25/23 by Tam Grewal MD albuterol sulfate 90 mcg/actuation 2 puffs inhalation Q4-6H PRN allopurinol 300 mg PO DAILY atorvastatin 40 mg PO BEDTIME buspirone 20 mg PO TID PRN cholecalciferol (vitamin D3) 50 mcg PO DAILY dicyclomine 20 mg PO BID escitalopram oxalate 10 mg PO DAILY finasteride 5 mg PO DAILY hydrocortisone valerate 0.2% 1 appl topical BID PRN metoprolol tartrate 12.5 mg PO BID tamsulosin 0.4 mg PO DAILY torsemide 20 mg PO DAILY trazodone 100 mg PO BEDTIME PRN warfarin 3 mg PO DAILY warfarin 5 mg PO DAILY Do you need a note to return to daycare/school/sports/work: No HPI COPD HPI Details This 77 years old gentleman, morbidly obese, BMI 47.3. Is retired . He is being treated for sleep apnea, with CPAP, manage by [place] outpatient respiratory service. He is seeing me for shortness of breath on exertion. He claims that he gets short of breath very easily on walking or doing any physical work. As per pulmonary function test he has mild to moderate degree of restrictive pulmonary disorder but no obstructive disorder. CT scan of the chest has shown small lung volumes but no interstitial lung disease. He has exertional hypoxemia, has had 6 minutes walk test, qualifies for POC, with O2 3 L/minute. We sent the orders for a POC on his last visit in January, he is still on the waiting list. At home he does use the stationary concentrator. But when outdoors the he, does not want to bring the large size cylinder with him. He is anxiously waiting for POC. [facility] Medical History Exercise hypoxemia Restrictive lung disease secondary to obesity Dyspnea on minimal exertion ZAIN on CPAP Morbid obesity Social History Patient Tobacco Use Status: Former Tobacco user Review of Systems Const All systems reviewed & are unremarkable except as noted in HPI and below Eyes Reports no additional complaints ENT Reports no additional complaints Card Denies chest pain, Denies irregular heart rhythm and Reports leg edema Resp Reports as per HPI GI Reports GI cramping (OFF AND ON) Reports nocturia Musc Reports back pain Skin/Breast Reports dry skin (OF THE LEGS) Neuro Reports no additional complaints Psych Reports no additional complaints Endo Reports no additional complaints Physical Exam Vital Signs: Last Vital Signs Pulse 91 04/25/23 14:52 BP 112/70 04/25/23 14:52 Pulse Ox 97 04/25/23 14:52 Oxygen Delivery Method Room Air 04/25/23 14:52 BMI result Body Mass Index 47.3 Const General: comfortable, no acute distress, alert and awake Orientation/consciousness: patient oriented x3 HEENT Head: Yes normal to inspection General nose exam: No nasal polyps present and No nasal discharge present Face and sinus: Yes sinuses nontender Mouth: oropharynx abnormals (NARROW AND CROWDED, MALLAMPATI SCALE 4) Throat: Yes posterior oropharynx normal Eyes General: appearance normal, both eyes and all related structures Neck Neck: Yes normal visual inspection, Yes no lymphadenopathy, Yes trachea midline, Yes no JVD and Yes other (NECK CIRCUMFERENCE 19 IN) Thyroid: Thyroid normal Chest Chest palpation & inspection: abnormal inspection of the chest (MIDLINE SCAR FROM PREVIOUS CABG SURGERY), normal palpation of entire chest wall and no tenderness Resp Other: PERCUSSION NOTE IS RESONANT. BREATH SOUNDS ARE DIMINISHED OVER BOTH BASILAR AREAS. NO WHEEZES RHONCHI OR CREPITATIONS ARE HEARD. Cardio Palpation: normal PMI Rate: regular rate Rhythm: regular rhythm Heart sounds: no gallops and no murmurs GI Palpation (GI): Soft to palpation, nontender, No hepatosplenomegaly present, no masses and Other GI palpation findings present (ABDOMEN IS OBESE AND PROTUBERANT) Auscultation: normal bowel sounds Back/Spine/Pelvis Thoracic/Lumbar Spine: thoracic and lumbar spine normal to inspection, thoraco-lumbar ROM limited and thoracic spinal tenderness Skin General skin exam: no rashes or lesions noted and dry skin (CHRONIC SCALING AND DRY SKIN OF LEGS) Neuro General: patient oriented x3 and no focal motor deficits Cranial nerves: Yes CN's II-XII intact bilaterally Extrem General: Yes normal to inspection, Yes no clubbing, cyanosis or edema, Yes no calf tenderness and Yes venous stasis dermatitis (MILD) Psych Appearance: grossly normal and well kempt Speech and movement: Normal speech and movement present Assessment & Plan Assessment & Plan (1) Morbid obesity: Comment: THIS GENTLEMAN HAS RATHER GROSS OBESITY, WEIGHT HAS GRADUALLY INCREASED BECAUSE OF LACK OF PHYSICAL EXERCISE AND ACTIVITY. I DISCUSSED WITH HIM IN GREAT DETAIL ABOUT THE HEALTH RISKS ASSOCIATED WITH MORBID OBESITY, AND NEED TO LOSE WEIGHT. HE IS NOT GOING TO BE ABLE TO PARTICIPATE IN ANY WEIGHT MANAGEMENT PROGRAM. I INSTRUCTED HIM ABOUT CUTTING DOWN THE PORTIONS OF HIS FOOD, AND TRY TO WALK MUCH HE CAN. Code(s): E66.01 - Morbid (severe) obesity due to excess calories Plan: as above (2) Dyspnea on minimal exertion: Comment: DYSPNEA ON MINIMAL EXERTION SEEMS TO BE DUE TO MULTIPLE FACTORS INCLUDING, GROSS OBESITY, MILD RESTRICTIVE PATTERN. AND MOST IMPORTANTLY EXERTIONAL HYPOXEMIA. HE IS BEING STARTED ON O2 WITH PORTABLE UNIT, AND ADVISED TO USE 2 L/MINUTE ANY TIME HE WALKS AROUND OR DOES ANY PHYSICAL EXERTION. HE HAD 6 MINUTES WALK ON THE PULSE OXYGEN MODE. NEEDED O2 3 L/MINUTE, TO KEEP O2 SAT ABOVE 90%. WE HAVE SENT ORDERS FOR A POC UNIT, IN OF THIS YEAR, HE IS STILL WAITING. TO GET THE POC UNIT WE WILL REACH OUT TO DME AND INQUIRE ABOUT THIS. Code(s): R06.09 - Other forms of dyspnea Plan: ABOVE (3) Restrictive lung disease secondary to obesity: Comment: HE DOES HAVE BUT ONLY MILD RESTRICTIVE PATTERN. THIS IS SECONDARY TO HIS GROSS OBESITY. ADVISED TO LOSE WEIGHT ADVISED TO CONTINUE DOING DEEP BREATHING EXERCISES 3 TO 4 TIMES A DAY. Code(s): J98.4 - Other disorders of lung; E66.9 - Obesity, unspecified Plan: ABOVE (4) Exercise hypoxemia: Comment: We did a 6 minutes walk test and his O2 sat does drop down to 87 after walking 4 minutes, He was started on a O2 1 L/minute which maintained his O2 sat around 93-94%. * I EXPLAINED TO THE PATIENT THAT HE NEEDS PORTABLE OXYGEN WHENEVER HE HAS TO WALK. HE PASSED THE TEST FOR POC. NEEDS O2 3 L/MINUTE WITH THE OXYGEN CONSERVING MODE. HE IS STILL WAITING TO GET THE POC UNIT. Code(s): R09.02 - Hypoxemia Plan: ABOVE (5) ZAIN on CPAP: Comment: HE IS IN KNOWN CASE OF OBSTRUCTIVE SLEEP APNEA SINCE ABOUT 10 YEARS AGO, USES CPAP VERY REGULARLY EVERY NIGHT. HE SHOULD HAVE OVERNIGHT OXIMETRY RECORDING WITH USE OF CPAP, TO DETERMINE IF HE SHOULD USE OXYGEN ALONG WITH CPAP AT NIGHT . HE IS BEING FOLLOWED UP AT [facility] FOR ZAIN MANAGEMENT . Code(s): G47.33 - Obstructive sleep apnea (adult) (pediatric); Z99.89 - Dependence on other enabling machines and devices Plan: ABOVE Coding Level of Care Code Est Pt Level 4 (51109) Diagnoses Morbid obesity E66.01 Dyspnea on minimal exertion R06.09 Restrictive lung disease secondary to obesity J98.4; E66.9 Exercise hypoxemia R09.02 ZAIN on CPAP G47.33; Z99.89
== END 2023-04-25 15:11 | disposition home or self-care (01) ==
PROVIDERS: PCP Nurse Practitioner; Visit Provider Internal Medicine
DX: E66.01 Morbid (severe) obesity due to excess calories (principal); R06.09 Other forms of dyspnea; J98.4 Other disorders of lung; E66.9 Obesity, unspecified; R09.02 Hypoxemia; G47.33 Obstructive sleep apnea (adult) (pediatric); Z99.89 Dependence on other enabling machines and devices
CPT/HCPCS: 99214

== ENCOUNTER → 2023-04-25 14:44 | Outpatient (BNVA) | payer MEDICARE, OTHER, SELFPAY | PROVIDERS: PCP Nurse Practitioner; Visit Provider Internal Medicine | DX: J98.4 Other disorders of lung (principal); E66.01 Morbid (severe) obesity due to excess calories; R09.02 Hypoxemia; R06.09 Other forms of dyspnea; G47.33 Obstructive sleep apnea (adult) (pediatric); Z99.89 Dependence on other enabling machines and devices; Z68.42 Body mass index [BMI] 45.0-49.9, adult | CPT/HCPCS: 99212 ==

== ENCOUNTER 2023-07-24 14:40 | Outpatient (AMB) | payer MEDICARE, OTHER, SELFPAY ==
--- NOTE | 2023-07-24 14:46 | MHC.OFFVIS ---
Intake Vital Signs 07/24/23 14:51 Height 5 ft 11 in Weight 334 lb 0.005 oz BMI 46.6 BP 110/68 Blood Pressure Location Lt brachial Position Sitting Pulse 95 Pulse Source Pulse Oximeter Pulse Oximetry (%) 98 Oxygen Delivery Method Nasal Cannula Oxygen Flow Rate 2 Intake Visit Reasons: Obstructive sleep apnea Intake Note: pt is here for follow up and states using cpap at night, was little short of breath when walking in, but his POC was off and when put back on O2 was up at 97. He does not use oxygen with his cpap, just the cpap. Public Health Specialist Required: No Allergies No Known Allergies Allergy (Verified 07/24/23 15:10) Medication List - Last Reconciled 07/24/23 by Tam Grewal MD albuterol sulfate 90 mcg/actuation 2 puffs inhalation Q4-6H PRN allopurinol 300 mg PO DAILY atorvastatin 40 mg PO BEDTIME buspirone 20 mg PO TID PRN cholecalciferol (vitamin D3) 50 mcg PO DAILY dicyclomine 20 mg PO BID escitalopram oxalate 10 mg PO DAILY finasteride 5 mg PO DAILY hydrocortisone valerate 0.2% 1 appl topical BID PRN metoprolol tartrate 12.5 mg PO BID semaglutide (Ozempic) mg subcut tamsulosin 0.4 mg PO DAILY torsemide 20 mg PO DAILY trazodone 100 mg PO BEDTIME PRN warfarin 3 mg PO DAILY warfarin 5 mg PO DAILY Do you need a note to return to daycare/school/sports/work: No HPI Obstructive sleep apnea HPI Details THIS 77 YEARS OLD GENTLEMAN WITH MORBID OBESITY, ,RESTRICTIVE PULMONARY DISORDER , OBSTRUCTIVE SLEEP APNEA IS HERE FOR FOLLOW-UP. HE USES O2 24 HOURS A DAY. HE DOES HAVE POC WHICH MAKES IT EASY FOR HIM TO GO OUTDOORS. HOWEVER TODAY HE WALKED INTO THE OFFICE AND POC WAS NOT ON SO HE WAS FEELING MORE SHORT OF BREATH. HE IS OF RELATIVELY SIMPLE MIND. COMPLAINS OF GETTING SHORT OF BREATH IF HE WALKS AROUND. AT HOME WHEN. HE IS RESTING HE IS OKAY HE SLEEPS OKAY WITH THE CPAP . HE CLAIMS THAT HE IS USING CPAP VERY REGULARLY EVERY NIGHT. [facility] Medical History Exercise hypoxemia Restrictive lung disease secondary to obesity Dyspnea on minimal exertion ZAIN on CPAP Morbid obesity Social History Patient Tobacco Use Status: Former Tobacco user Review of Systems Const All systems reviewed & are unremarkable except as noted in HPI and below Eyes Reports no additional complaints ENT Reports no additional complaints Card Denies chest pain, Denies irregular heart rhythm and Reports leg edema Resp Reports as per HPI GI Reports GI cramping (OFF AND ON) Reports nocturia Musc Reports back pain Skin/Breast Reports dry skin (OF THE LEGS) Neuro Reports no additional complaints Psych Reports no additional complaints Endo Reports no additional complaints Physical Exam Vital Signs: Last Vital Signs Pulse 95 07/24/23 14:51 BP 110/68 07/24/23 14:51 Pulse Ox 98 07/24/23 14:51 Oxygen Delivery Method Nasal Cannula 07/24/23 14:51 Oxygen Flow Rate 2 07/24/23 14:51 BMI result Body Mass Index 46.6 Const General: comfortable, no acute distress, alert and awake Orientation/consciousness: patient oriented x3 HEENT Head: Yes normal to inspection General nose exam: No nasal polyps present and No nasal discharge present Face and sinus: Yes sinuses nontender Mouth: oropharynx abnormals (NARROW AND CROWDED, MALLAMPATI SCALE 4) Throat: Yes posterior oropharynx normal Eyes General: appearance normal, both eyes and all related structures Neck Neck: Yes normal visual inspection, Yes no lymphadenopathy, Yes trachea midline, Yes no JVD and Yes other (NECK CIRCUMFERENCE 19 IN) Thyroid: Thyroid normal Chest Chest palpation & inspection: abnormal inspection of the chest (MIDLINE SCAR FROM PREVIOUS CABG SURGERY), normal palpation of entire chest wall and no tenderness Resp Other: PERCUSSION NOTE IS RESONANT. BREATH SOUNDS ARE DIMINISHED OVER BOTH BASILAR AREAS. NO WHEEZES RHONCHI OR CREPITATIONS ARE HEARD. Cardio Palpation: normal PMI Rate: regular rate Rhythm: regular rhythm Heart sounds: no gallops and no murmurs GI Palpation (GI): Soft to palpation, nontender, No hepatosplenomegaly present, no masses and Other GI palpation findings present (ABDOMEN IS OBESE AND PROTUBERANT) Auscultation: normal bowel sounds Back/Spine/Pelvis Thoracic/Lumbar Spine: thoracic and lumbar spine normal to inspection, thoraco-lumbar ROM limited and thoracic spinal tenderness Skin General skin exam: no rashes or lesions noted and dry skin (CHRONIC SCALING AND DRY SKIN OF LEGS) Neuro General: patient oriented x3 and no focal motor deficits Cranial nerves: Yes CN's II-XII intact bilaterally Extrem General: Yes normal to inspection, Yes no clubbing, cyanosis or edema, Yes no calf tenderness and Yes venous stasis dermatitis (MILD) Psych Appearance: grossly normal and well kempt Speech and movement: Normal speech and movement present Assessment & Plan Assessment & Plan (1) Morbid obesity: Comment: THIS GENTLEMAN HAS RATHER GROSS OBESITY, WEIGHT HAS GRADUALLY INCREASED BECAUSE OF LACK OF PHYSICAL EXERCISE AND ACTIVITY. I DISCUSSED WITH HIM IN GREAT DETAIL ABOUT THE HEALTH RISKS ASSOCIATED WITH MORBID OBESITY, AND NEED TO LOSE WEIGHT. HE IS NOT GOING TO BE ABLE TO PARTICIPATE IN ANY WEIGHT MANAGEMENT PROGRAM. Code(s): E66.01 - Morbid (severe) obesity due to excess calories Plan: I INSTRUCTED HIM ABOUT CUTTING DOWN THE PORTIONS OF HIS FOOD, AND TRY TO WALK MUCH HE CAN. (2) ZAIN on CPAP: Comment: HE IS IN KNOWN CASE OF OBSTRUCTIVE SLEEP APNEA SINCE ABOUT 11 YEARS AGO, USES CPAP VERY REGULARLY EVERY NIGHT. HE SHOULD HAVE OVERNIGHT OXIMETRY RECORDING WITH USE OF CPAP, TO DETERMINE IF HE SHOULD USE OXYGEN ALONG WITH CPAP AT NIGHT . HE IS BEING FOLLOWED UP AT [facility] FOR ZAIN MANAGEMENT . Code(s): G47.33 - Obstructive sleep apnea (adult) (pediatric); Z99.89 - Dependence on other enabling machines and devices Plan: HAD A GOOD DISCUSSION AND I ADVISED HIM TO KEEP ON USING CPAP EVERY NIGHT REGULARLY (3) Restrictive lung disease secondary to obesity: Comment: HE DOES HAVE BUT ONLY MILD RESTRICTIVE PATTERN. THIS IS SECONDARY TO HIS GROSS OBESITY. Code(s): J98.4 - Other disorders of lung; E66.9 - Obesity, unspecified Plan: ADVISED TO LOSE WEIGHT ADVISED TO CONTINUE DOING DEEP BREATHING EXERCISES 3 TO 4 TIMES A DAY. (4) Dyspnea on minimal exertion: Comment: DYSPNEA ON MINIMAL EXERTION SEEMS TO BE DUE TO MULTIPLE FACTORS INCLUDING, GROSS OBESITY, MILD RESTRICTIVE PATTERN. AND MOST IMPORTANTLY EXERTIONAL HYPOXEMIA. IT HAS IMPROVED SINCE HE IS USING THE PORTABLE OXYGEN WITH POC. Code(s): R06.09 - Other forms of dyspnea Plan: PATIENT EXPLAINED ABOUT USE OF THE POC. ADVISED TO USE AT 3 L/MINUTE ANY TIME HE GOES OUTDOORS. (5) Exercise hypoxemia: Comment: We did a 6 minutes walk test and his O2 sat does drop down to 87 after walking 4 minutes, He was started on a O2 1 L/minute which maintained his O2 sat around 93-94%. * I EXPLAINED TO THE PATIENT THAT HE NEEDS PORTABLE OXYGEN WHENEVER HE HAS TO WALK. HE PASSED THE TEST FOR POC. NEEDS O2 3 L/MINUTE WITH THE OXYGEN CONSERVING MODE. Code(s): R09.02 - Hypoxemia Plan: TALKED TO HIM ABOUT THE USE OF OXYGEN WITH POC. HE UNDERSTANDS WELL Coding Level of Care Code Est Pt Level 3 (26936) Diagnoses Morbid obesity E66.01 ZAIN on CPAP G47.33; Z99.89 Restrictive lung disease secondary to obesity J98.4; E66.9 Dyspnea on minimal exertion R06.09 Exercise hypoxemia R09.02
[2023-07-24 14:51] VITALS: BP 110/68; PULSE 95; O2SAT 98; BMI 46.6
== END 2023-07-24 15:11 | disposition home or self-care (01) ==
PROVIDERS: PCP Nurse Practitioner; Visit Provider Internal Medicine
DX: E66.01 Morbid (severe) obesity due to excess calories (principal); G47.33 Obstructive sleep apnea (adult) (pediatric); Z99.89 Dependence on other enabling machines and devices; J98.4 Other disorders of lung; E66.9 Obesity, unspecified; R06.09 Other forms of dyspnea; R09.02 Hypoxemia
CPT/HCPCS: 99213

== ENCOUNTER → 2023-07-24 14:40 | Outpatient (BNVA) | payer MEDICARE, OTHER, SELFPAY | PROVIDERS: PCP Nurse Practitioner; Visit Provider Internal Medicine | DX: G47.33 Obstructive sleep apnea (adult) (pediatric) (principal); J98.4 Other disorders of lung; R06.09 Other forms of dyspnea; R09.02 Hypoxemia; E66.01 Morbid (severe) obesity due to excess calories; Z99.89 Dependence on other enabling machines and devices; Z68.42 Body mass index [BMI] 45.0-49.9, adult | CPT/HCPCS: 99212 ==

== ENCOUNTER 2023-11-19 14:26 | Outpatient (AMB) | payer MEDICARE, SELFPAY ==
[2023-11-19 15:00] VITALS: BP 124/68; PULSE 104; O2SAT 93
--- NOTE | 2023-11-19 15:00 | MHC.OFFVIS ---
Vital Signs 11/19/23 15:00 Height 5 ft 11 in BP 124/68 Blood Pressure Location Lt brachial Position Sitting Pulse 104 H Pulse Source Pulse Oximeter Pulse Oximetry (%) 93 Oxygen Delivery Method Nasal Cannula Oxygen Flow Rate 4 Intake Visit Reasons: Obstructive sleep apnea Intake Note: pt is here for follow up and states his breathing is very bad, past 2 weeks progressing worse Vocational Director Required: No Allergies No Known Allergies Allergy (Verified 11/19/23 15:03) PFSH Medical History Exercise hypoxemia Restrictive lung disease secondary to obesity Dyspnea on minimal exertion ZAIN on CPAP Morbid obesity Social History Patient Tobacco Use Status: Former Tobacco user Coding
--- NOTE | 2023-11-19 15:07 | A.OFFVIS_ITS ---
Vital Signs 11/19/23 15:00 Height 5 ft 11 in BP 124/68 Blood Pressure Location Lt brachial Position Sitting Pulse 104 H Pulse Source Pulse Oximeter Pulse Oximetry (%) 93 Oxygen Delivery Method Nasal Cannula Oxygen Flow Rate 4 Intake Visit Reasons: Obstructive sleep apnea Allergies No Known Allergies Allergy (Verified 11/19/23 15:24) Medication List - Last Reconciled 11/19/23 by Tam Grewal MD albuterol sulfate 90 mcg/actuation 2 puffs inhalation Q4-6H PRN allopurinol 300 mg PO DAILY atorvastatin 40 mg PO BEDTIME buspirone 20 mg PO TID PRN cholecalciferol (vitamin D3) 50 mcg PO DAILY dicyclomine 20 mg PO BID escitalopram oxalate 10 mg PO DAILY finasteride 5 mg PO DAILY hydrocortisone valerate 0.2% 1 appl topical BID PRN metoprolol tartrate 12.5 mg PO BID semaglutide (Ozempic) mg subcut tamsulosin 0.4 mg PO DAILY torsemide 20 mg PO DAILY trazodone 100 mg PO BEDTIME PRN warfarin 3 mg PO DAILY warfarin 5 mg PO DAILY Do you need a note to return to daycare/school/sports/work: No HPI HPI Obstructive sleep apnea: Details: MR. ROBERTS, IS HERE FOR FOLLOW-UP FOR HIS BREATHING ISSUES. THIS GENTLEMAN IS MORBIDLY OBESE, WITH HISTORY OF OBSTRUCTIVE SLEEP APNEA. HE HAS RESTRICTIVE LUNG DISEASE, AND HYPOXEMIA, BUT DOES NOT HAVE ANY SIGNIFICANT OBSTRUCTIVE AIRWAY DISORDER. HIS MAIN COMPLAINT IS DIFFICULTY IN WALKING DUE TO SHORTNESS OF BREATH, AND ALSO REMAINS TIRED DURING THE DAYTIME. IT IS HARD TO WEIGH HIM ON THE SCALE, BUT FROM GENERAL LOOK IT SEEMS THAT HE HAS PUT ON . SIGNIFICANT WEIGHT HE DOES HAVE INCREASED SWELLING OF HIS LEGS SUGGESTING THAT HE IS RETAINING MORE FLUID. HE IS ON OXYGEN WITH STATIONARY CONCENTRATOR AT HOME THAT HE KEEPS AT 2 L/MINUTE. HE HAS POC WHICH HE BRINGS OUT WITH HIM WHEN HE GOES OUTDOORS AND SABRA'S UP THE OXYGEN TO 4 L/MINUTE. IN SPITE OF ALL THIS HE IS STILL SHORT OF BREATH ON MINIMAL WALKING. HE IS BEING TREATED FOR SLEEP APNEA WITH CPAP WHICH HE USES EVERY NIGHT. FOR THE CPAP HE IS BEING [facility].. HE CLAIMS THAT HE USES THE CPAP EVERY NIGHT, AND WHEN HE DOES USE THE CPAP HE DOES NOT USE OXYGEN ALONG WITH THAT. [facility] Medical History Exercise hypoxemia Restrictive lung disease secondary to obesity Dyspnea on minimal exertion ZAIN on CPAP Morbid obesity Social History Patient Tobacco Use Status: Former Tobacco user Review of Systems Const All systems reviewed & are unremarkable except as noted in HPI and below Eyes Reports no additional complaints ENT Reports no additional complaints Card Denies chest pain, Denies irregular heart rhythm and Reports leg edema Resp Reports as per HPI GI Reports GI cramping (OFF AND ON) Reports nocturia Musc Reports back pain Skin/Breast Reports dry skin (OF THE LEGS) Neuro Reports no additional complaints Psych Reports no additional complaints Endo Reports no additional complaints Physical Exam Vital Signs: Last Vital Signs Pulse 104 H 11/19/23 15:00 BP 124/68 11/19/23 15:00 Pulse Ox 93 11/19/23 15:00 Oxygen Delivery Method Nasal Cannula 11/19/23 15:00 Oxygen Flow Rate 4 11/19/23 15:00 Const General: comfortable, no acute distress, alert and awake Orientation/consciousness: patient oriented x3 HEENT Head: Yes normal to inspection General nose exam: No nasal polyps present and No nasal discharge present Face and sinus: Yes sinuses nontender Mouth: oropharynx abnormals (NARROW AND CROWDED, MALLAMPATI SCALE 4) Throat: Yes posterior oropharynx normal Eyes General: appearance normal, both eyes and all related structures Neck Neck: Yes normal visual inspection, Yes no lymphadenopathy, Yes trachea midline, Yes no JVD and Yes other (NECK CIRCUMFERENCE 19 IN) Thyroid: Thyroid normal Chest Chest palpation & inspection: abnormal inspection of the chest (MIDLINE SCAR FROM PREVIOUS CABG SURGERY), normal palpation of entire chest wall and no tenderness Resp Other: PERCUSSION NOTE IS RESONANT. BREATH SOUNDS ARE DIMINISHED OVER BOTH BASILAR AREAS. NO WHEEZES RHONCHI OR CREPITATIONS ARE HEARD. Cardio Palpation: normal PMI Rate: regular rate Rhythm: regular rhythm Heart sounds: no gallops and no murmurs GI Palpation (GI): Soft to palpation, nontender, No hepatosplenomegaly present, no masses and Other GI palpation findings present (ABDOMEN IS OBESE AND PROTUBERANT) Auscultation: normal bowel sounds Back/Spine/Pelvis Thoracic/Lumbar Spine: thoracic and lumbar spine normal to inspection, thoraco- lumbar ROM limited and thoracic spinal tenderness Skin General skin exam: no rashes or lesions noted and dry skin (CHRONIC SCALING AND DRY SKIN OF LEGS) Neuro General: patient oriented x3 and no focal motor deficits Cranial nerves: Yes CN's II-XII intact bilaterally Extrem General: Yes normal to inspection, Yes no clubbing, cyanosis or edema, Yes no calf tenderness and Yes venous stasis dermatitis (MILD) Psych Appearance: grossly normal and well kempt Speech and movement: Normal speech and movement present Assessment & Plan Assessment & Plan (1) Morbid obesity: Comment: THIS GENTLEMAN HAS RATHER GROSS OBESITY, WEIGHT HAS GRADUALLY INCREASED BECAUSE OF LACK OF PHYSICAL EXERCISE AND ACTIVITY. Code(s): E66.01 - Morbid (severe) obesity due to excess calories Category: Medical Plan: I DISCUSSED WITH HIM IN GREAT DETAIL ABOUT THE HEALTH RISKS ASSOCIATED WITH MORBID OBESITY, AND NEED TO LOSE WEIGHT. HE IS NOT GOING TO BE ABLE TO PARTICIPATE IN ANY WEIGHT MANAGEMENT PROGRAM. SOME OF THE WEIGHT INCREASES DUE TO FLUID RETENTION. I THINK HIS DOSE OF DIURETIC AGENT ( TORSEMIDE ) MAY NEED TO BE INCREASED. I ADVISED HIM TO SEE HIS PRIMARY CARE PHYSICIAN AT THE EARLIEST POSSIBLE DATE, AND ALSO MAY BE HE SHOULD BE FOLLOWED BY CARDIOLOGY SERVICE REGULARLY. (2) Restrictive lung disease secondary to obesity: Comment: HE DOES HAVE BUT ONLY MILD RESTRICTIVE PATTERN. THIS IS SECONDARY TO HIS GROSS OBESITY. Code(s): J98.4 - Other disorders of lung; E66.9 - Obesity, unspecified Category: Medical Plan: ADVISED HIM TO DO DEEP BREATHING EXERCISES. I GAVE HIM INCENTIVE SPIROMETRY DEVICE FROM THE OFFICE AND EDUCATED HIM ABOUT DOING THE DEEP BREATHING EXERCISES EVERY HOUR WHEN HE IS AWAKE. (3) Dyspnea on minimal exertion: Comment: DYSPNEA ON MINIMAL EXERTION SEEMS TO BE DUE TO MULTIPLE FACTORS INCLUDING, GROSS OBESITY, RESTRICTIVE LUNG DISORDER, CONGESTIVE HEART FAILURE AND EXERTIONAL HYPOXEMIA. Code(s): R06.09 - Other forms of dyspnea Category: Medical Plan: CONTINUE TO USE O2 2 L/MINUTE AT HOME, AND MAY INCREASE TO 3-4 L/MINUTE WHEN HE GOES OUTDOORS( USING POC ) (4) Exercise hypoxemia: Comment: PATIENT HAS HAD 6 MINUTES WALK TEST. HE DESATURATES QUICKLY ON EXERTION. HE HAS BEEN ON PORTABLE OXYGEN. Code(s): R09.02 - Hypoxemia Category: Medical Plan: USE O2 3-4 L/MINUTE VIA POC, WITH ANY PHYSICAL ACTIVITY OR WHEN GOING OUTDOORS. AT HOME HE CAN USE VIA THE STATIONARY CONCENTRATOR, 2 L/MINUTE P.R.N.. (5) ZAIN on CPAP: Comment: HE IS IN KNOWN CASE OF OBSTRUCTIVE SLEEP APNEA SINCE ABOUT 11 YEARS AGO, USES CPAP VERY REGULARLY EVERY NIGHT. HE SHOULD HAVE OVERNIGHT OXIMETRY RECORDING WITH USE OF CPAP, TO DETERMINE IF HE SHOULD USE OXYGEN ALONG WITH CPAP AT NIGHT . HE IS BEING FOLLOWED [facility] ZAIN MANAGEMENT . Code(s): G47.33 - Obstructive sleep apnea (adult) (pediatric); Z99.89 - Dependence on other enabling machines and devices Category: Medical Plan: CONTINUE TO GO FOR FOLLOW-UP AT THE [facility] REGULARLY. Coding Level of Care Code Est Pt Level 4 (02768) Diagnoses Morbid obesity E66.01 Restrictive lung disease secondary to obesity J98.4; E66.9 Dyspnea on minimal exertion R06.09 Exercise hypoxemia R09.02 ZAIN on CPAP G47.33; Z99.89
== END 2023-11-19 15:26 | disposition home or self-care (01) ==
PROVIDERS: PCP Nurse Practitioner; Visit Provider Internal Medicine
DX: E66.01 Morbid (severe) obesity due to excess calories (principal); J98.4 Other disorders of lung; E66.9 Obesity, unspecified; R06.09 Other forms of dyspnea; R09.02 Hypoxemia; G47.33 Obstructive sleep apnea (adult) (pediatric); Z99.89 Dependence on other enabling machines and devices
CPT/HCPCS: 99214

== ENCOUNTER → 2023-11-19 14:51 | Outpatient (BNVA) | payer MEDICARE, OTHER, SELFPAY | PROVIDERS: PCP Nurse Practitioner; Visit Provider Internal Medicine | DX: E66.01 Morbid (severe) obesity due to excess calories (principal); J98.4 Other disorders of lung; R06.09 Other forms of dyspnea; R09.02 Hypoxemia; G47.33 Obstructive sleep apnea (adult) (pediatric); Z99.81 Dependence on supplemental oxygen; Z99.89 Dependence on other enabling machines and devices | CPT/HCPCS: 99212 ==

== ENCOUNTER 2024-01-21 14:30 | Outpatient (AMB) | payer MEDICARE, SELFPAY ==
--- NOTE | 2024-01-21 14:37 | MHC.OFFVIS ---
Vital Signs 01/21/24 14:38 Height 5 ft 11 in BP 90/60 Blood Pressure Location Lt brachial Position Sitting Pulse 108 H Pulse Source Pulse Oximeter Pulse Oximetry (%) 93 Oxygen Delivery Method Nasal Cannula Oxygen Flow Rate 2 Intake Visit Reasons: Obstructive sleep apnea Intake Note: pt is here for folllow up and states his breathing is okay, cpap at night and oxygen during the day, [facility] Pairer Inspector Required: No Allergies No Known Allergies Allergy (Verified 01/21/24 15:01) Medication List - Last Reconciled 01/21/24 by Tam Grewal MD albuterol sulfate 90 mcg/actuation 2 puffs inhalation Q4-6H PRN allopurinol 300 mg PO DAILY atorvastatin 40 mg PO BEDTIME buspirone 20 mg PO TID PRN cholecalciferol (vitamin D3) 50 mcg PO DAILY dicyclomine 20 mg PO BID escitalopram oxalate 10 mg PO DAILY finasteride 5 mg PO DAILY hydrocortisone valerate 0.2% 1 appl topical BID PRN metoprolol tartrate 12.5 mg PO BID semaglutide (Ozempic) mg subcut tamsulosin 0.4 mg PO DAILY torsemide 20 mg PO DAILY trazodone 100 mg PO BEDTIME PRN warfarin 3 mg PO DAILY warfarin 5 mg PO DAILY Do you need a note to return to daycare/school/sports/work: No HPI HPI Obstructive sleep apnea: Details: This 78 years old gentleman with morbid obesity, impaired locomotion, congestive heart failure, restrictive pulmonary disease, and hypoxemia. Also has obstructive sleep apnea. He comes for follow-up after 2 months. He is using oxygen most of the time during the day , and is happy with using the POC for portability. He uses CPAP regularly at night and sleeps well. His locomotion being impaired he is mostly resting in the house, goes outdoors only for appointments . Today he claims that breathing lynne he is well as long as he is using oxygen. Has very little cough or wheezing. However he gets short of breath on minimal exertion. He is planning to fly to [place] to spend a few days with his brother, and is asking if he can fly. [facility] Medical History Exercise hypoxemia Restrictive lung disease secondary to obesity Dyspnea on minimal exertion ZAIN on CPAP Morbid obesity Social History Patient Tobacco Use Status: Former Tobacco user Review of Systems Const All systems reviewed & are unremarkable except as noted in HPI and below Eyes Reports no additional complaints ENT Reports no additional complaints Card Denies chest pain, Denies irregular heart rhythm and Reports leg edema Resp Reports as per HPI GI Reports GI cramping (OFF AND ON) Reports nocturia Musc Reports back pain Skin/Breast Reports dry skin (OF THE LEGS) Neuro Reports no additional complaints Psych Reports no additional complaints Endo Reports no additional complaints Physical Exam Vital Signs: Last Vital Signs Pulse 108 H 01/21/24 14:38 BP 90/60 01/21/24 14:38 Pulse Ox 93 01/21/24 14:38 Oxygen Delivery Method Nasal Cannula 01/21/24 14:38 Oxygen Flow Rate 2 01/21/24 14:38 Const General: comfortable, no acute distress, alert and awake Orientation/consciousness: patient oriented x3 HEENT Head: Yes normal to inspection General nose exam: No nasal polyps present and No nasal discharge present Face and sinus: Yes sinuses nontender Mouth: oropharynx abnormals (NARROW AND CROWDED, MALLAMPATI SCALE 4) Throat: Yes posterior oropharynx normal Eyes General: appearance normal, both eyes and all related structures Neck Neck: Yes normal visual inspection, Yes no lymphadenopathy, Yes trachea midline, Yes no JVD and Yes other (NECK CIRCUMFERENCE 19 IN) Thyroid: Thyroid normal Chest Chest palpation & inspection: abnormal inspection of the chest (MIDLINE SCAR FROM PREVIOUS CABG SURGERY), normal palpation of entire chest wall and no tenderness Resp Other: PERCUSSION NOTE IS RESONANT. BREATH SOUNDS ARE DIMINISHED OVER BOTH BASILAR AREAS. NO WHEEZES RHONCHI OR CREPITATIONS ARE HEARD. Cardio Palpation: normal PMI Rate: regular rate Rhythm: regular rhythm Heart sounds: no gallops and no murmurs GI Palpation (GI): Soft to palpation, nontender, No hepatosplenomegaly present, no masses and Other GI palpation findings present (ABDOMEN IS OBESE AND PROTUBERANT) Auscultation: normal bowel sounds Back/Spine/Pelvis Thoracic/Lumbar Spine: thoracic and lumbar spine normal to inspection, thoraco-lumbar ROM limited and thoracic spinal tenderness Skin General skin exam: no rashes or lesions noted and dry skin (CHRONIC SCALING AND DRY SKIN OF LEGS) Neuro General: patient oriented x3 and no focal motor deficits Cranial nerves: Yes CN's II-XII intact bilaterally Extrem General: Yes normal to inspection, Yes no clubbing, cyanosis or edema, Yes no calf tenderness and Yes venous stasis dermatitis (MILD) Psych Appearance: grossly normal and well kempt Speech and movement: Normal speech and movement present Assessment & Plan Assessment & Plan (1) Morbid obesity: Comment: THIS GENTLEMAN HAS RATHER GROSS OBESITY, WEIGHT HAS GRADUALLY INCREASED BECAUSE OF LACK OF PHYSICAL EXERCISE AND ACTIVITY. Code(s): E66.01 - Morbid (severe) obesity due to excess calories Category: Medical Plan: Patient not able to do any physical therapy or exercise. He has been started on Ozempic injections, and hopefully this will help him to lose some weight. (2) ZAIN on CPAP: Comment: HE IS IN KNOWN CASE OF OBSTRUCTIVE SLEEP APNEA SINCE ABOUT 11 YEARS AGO, USES CPAP VERY REGULARLY EVERY NIGHT. HE SHOULD HAVE OVERNIGHT OXIMETRY RECORDING WITH USE OF CPAP, TO DETERMINE IF HE SHOULD USE OXYGEN ALONG WITH CPAP AT NIGHT . HE IS BEING FOLLOWED UP AT [facility] FOR ZAIN MANAGEMENT . Code(s): G47.33 - Obstructive sleep apnea (adult) (pediatric); Z99.89 - Dependence on other enabling machines and devices Category: Medical Plan: Advised to continue using CPAP at night (3) Dyspnea on minimal exertion: Comment: DYSPNEA ON MINIMAL EXERTION SEEMS TO BE DUE TO MULTIPLE FACTORS INCLUDING: GROSS OBESITY, RESTRICTIVE LUNG DISORDER, CONGESTIVE HEART FAILURE AND EXERTIONAL HYPOXEMIA. Code(s): R06.09 - Other forms of dyspnea Category: Medical Plan: Explained to the patient all these factors. Continue O2 2 L/minute most of the time even at rest, but definitely when exerting or going around (4) Restrictive lung disease secondary to obesity: Comment: HE DOES HAVE BUT ONLY MILD RESTRICTIVE PATTERN. THIS IS SECONDARY TO HIS GROSS OBESITY. Code(s): J98.4 - Other disorders of lung; E66.9 - Obesity, unspecified Category: Medical Plan: Try to lose weight. Do deep breathing exercises at least 3 times a day . (5) Exercise hypoxemia: Comment: PATIENT HAS HAD 6 MINUTES WALK TEST. HE DESATURATES QUICKLY ON EXERTION. HE HAS BEEN ON PORTABLE OXYGEN. Code(s): R09.02 - Hypoxemia Category: Medical Plan: Continue to use portable oxygen with POC 2 L/minute. PATIENT PLANS TO TRAVEL TO [place] BY AIR, I HAVE GIVEN HIM A NOTE TO CARRY HIS POC ALONG WITH HIM AND USE OXYGEN CONTINUOUSLY. HE WOULD NEED A STATIONARY O2 CONCENTRATOR TO USE O2 AT HOME. HE SAY IS HIS BROTHER DOES HAVE O2 CONCENTRATOR THERE IN [place]DAY [place] . Coding Level of Care Code Est Pt Level 4 (04890) Diagnoses Morbid obesity E66.01 ZAIN on CPAP G47.33; Z99.89 Dyspnea on minimal exertion R06.09 Restrictive lung disease secondary to obesity J98.4; E66.9 Exercise hypoxemia R09.02
[2024-01-21 14:38] VITALS: BP 90/60; PULSE 108; O2SAT 93
== END 2024-01-21 15:05 | disposition home or self-care (01) ==
PROVIDERS: PCP Nurse Practitioner; Visit Provider Internal Medicine
DX: E66.01 Morbid (severe) obesity due to excess calories (principal); G47.33 Obstructive sleep apnea (adult) (pediatric); Z99.89 Dependence on other enabling machines and devices; R06.09 Other forms of dyspnea; J98.4 Other disorders of lung; E66.9 Obesity, unspecified; R09.02 Hypoxemia
CPT/HCPCS: 99214

== ENCOUNTER → 2024-01-21 14:30 | Outpatient (BNVA) | payer MEDICARE, SELFPAY | PROVIDERS: PCP Nurse Practitioner; Visit Provider Internal Medicine | DX: G47.33 Obstructive sleep apnea (adult) (pediatric) (principal); R06.09 Other forms of dyspnea; R09.02 Hypoxemia; J98.4 Other disorders of lung; E66.01 Morbid (severe) obesity due to excess calories; Z99.89 Dependence on other enabling machines and devices | CPT/HCPCS: 99212 ==